=== PATIENT | male | born 1980 | race Two or more races ===

== ENCOUNTER 2024-06-17 15:43 | Emergency (ER) | payer SELFPAY ==
[~2024-06-17] VITALS: Ht 177.8 cm; Wt 80.0 kg
[2024-06-17 15:51] VITALS: BP 141/84; PULSE 97; RESP 16; TEMP 98.8; O2SAT 99
[2024-06-17 16:38] LABS: CLARITY URINE CLEAR (CLEAR); COLOR URINE YELLOW (YELLOW); GLUCOSE URINE NEGATIVE (NEGATIVE); KETONES URINE TRACE (NEGATIVE); LEUKOCYTE ESTERASE URINE NEGATIVE (NEGATIVE); NITRITE URINE NEGATIVE (NEGATIVE); OCCULT BLOOD URINE NEGATIVE (NEGATIVE); PH URINE 5.5 (4.5-8.0); PROTEIN URINE NEGATIVE (NEGATIVE); SPECIFIC GRAVITY URINE 1.014 (1.005-1.030)
[2024-06-17] MEDS ORDERED: DOXY100C5 MT (16:42)
[2024-06-17] MEDS: CEFTRIAXONE SODIUM 500MG VIAL IM ONE (17:52)
[2024-06-17] MEDS: LIDOCAINE HCL 1% 20ML VIAL INFIL ONE (17:52)
[2024-06-19 13:11] LABS: CHLAMYDIA TRACHOMATIS NAA Negative (Negative); NEISSERIA GONORRHOEAE NAA Negative (Negative)
== END 2024-06-17 17:51 | disposition home or self-care (01) ==
LOC: ER 15:43
DX: A64 Unspecified sexually transmitted disease (principal)
CPT/HCPCS: 99283; 87491; 87591; 81003; J0696; J3490